=== PATIENT | female | born 1985 | race African-American/Black ===

== ENCOUNTER 2016-08-02 12:26 | Emergency (ER) | payer OTHER ==
[~2016-08-02] VITALS: Ht 154.9 cm; Wt 89.7 kg
[2016-08-02 13:30] LABS: MCH 23.1 PG (29.0-34.0); MCHC 31.2 G/DL (30.0-36.0); MCV 74.1 FL (83-99); MEAN PLAT.VOLUME 9.4 uM^3 (9.5-12.4); PLATELET COUNT 269 K/uL (156-360); RBC DIS.WIDTH-CV 15.8 % (11.8-14.6); RBC DIS.WIDTH-SD 41.7 % (39-53); RED BLOOD COUNT 4.59 M/uL (3.80-5.20); WHITE BLOOD COUNT 8.2 K/uL (4.1-10.2)
[2016-08-02 14:32] LABS: COLOR RED ((YELLOW)); NITRITE NEGATIVE
[2016-08-02 14:33] LABS: ADD MIUA? YES; BILIRUBIN NEGATIVE; BLOOD LARGE; GLUCOSE (STRIP) NEGATIVE; KETONES TRACE; PROTEIN (STRIP) 100; UROBILINOGEN 0.2 MG/DL (0.2-1.0)
[2016-08-02 14:36] LABS: RED BLOOD CELLS TNTC /HPF (0-5)
[2016-08-02 16:58] VITALS: BP 98/54
== END 2016-08-02 16:58 | disposition home or self-care (01) ==
LOC: EME 12:26
PROVIDERS: Physician Assistant
DX: O20.0 Threatened abortion (principal); R31.9 Hematuria, unspecified; M54.5 Low back pain; Z3A.01 Less than 8 weeks gestation of pregnancy
CPT/HCPCS: 76801; 81003; 84702; 85027; 99281; 99284

== ENCOUNTER 2016-10-04 09:15 | Day surgery (SDC) | payer OTHER ==
[~2016-10-04] VITALS: Ht 154.9 cm; Wt 90.3 kg
[~2016-10-04 09:15] MED LIST: PRENATAL TABLE1 EAC3 PO
[2016-10-04 09:43] VITALS: BP 111/55
[2016-10-04 14:14] VITALS: BP 103/66
[2016-10-04 15:10] VITALS: BP 125/83
== END 2016-10-04 15:10 | disposition home or self-care (01) ==
LOC: SDC 09:15
PROC: 0UB98ZZ Excision of Uterus, Via Natural or Artificial Opening Endoscopic (ICD-10-PCS; principal; 2016-10-04)
DX: D25.0 Submucous leiomyoma of uterus (principal); N92.0 Excessive and frequent menstruation with regular cycle; N94.6 Dysmenorrhea, unspecified
CPT/HCPCS: 88305; 94640; J0131; J1100; J1885; J2250; J2405; J2765; J3010

== ENCOUNTER 2018-01-03 13:23 | Emergency (ER) | payer OTHER ==
[~2018-01-03] VITALS: Ht 154.9 cm; Wt 94.7 kg
[2018-01-03 14:17] LABS: HEMATOCRIT 37.3 % (36.0-46.0); HEMOGLOBIN 12.1 G/DL (11.9-15.5); MCH 24.8 PG (29.0-34.0); MCHC 32.4 G/DL (30.0-36.0); MCV 76.4 FL (83-99); PLATELET COUNT 225 K/uL (156-360); RBC DIS.WIDTH-CV 18.1 % (11.8-14.6); RBC DIS.WIDTH-SD 49.7 % (39-53); RED BLOOD COUNT 4.88 M/uL (3.80-5.20); WHITE BLOOD COUNT 9.5 K/uL (4.1-10.2)
[2018-01-03 14:27] LABS: ALBUMIN 3.9 g/dL (3.2-4.8); CHLORIDE 103 mEq/L (99-109); POTASSIUM 3.7 mEq/L (3.7-5.4); SODIUM 134 mEq/L (136-147)
[2018-01-03 14:30] LABS: GLUCOSE 80 mg/dL (70-99); TOTAL PROTEIN 7.7 g/dL (6.4-8.3)
[2018-01-03 14:32] LABS: TOTAL BILIRUBIN 0.5 mg/dL (0.0-1.0)
[2018-01-03 14:33] LABS: ALKALINE PHOSPHATASE 69 IU/L (3-129); CREATININE 0.8 mg/dL (0.6-1.3); GFR ESTIMATE (CALCULATED) > 59 mL/min/
[2018-01-03 14:34] LABS: UREA NITROGEN (BUN) 5 mg/dL (9-23)
[2018-01-03 14:35] LABS: AST (GOT) 38 IU/L (2-34)
[2018-01-03 14:36] LABS: ALT (GPT) 54 IU/L (3-49)
[2018-01-03 14:55] LABS: APPEARANCE SL.HAZY ((CLEAR)); BILIRUBIN NEGATIVE; BLOOD NEGATIVE; COLOR YELLOW ((YELLOW)); GLUCOSE (STRIP) NEGATIVE; KETONES 5; LEUKOCYTES TRACE; NITRITE NEGATIVE; PROTEIN (STRIP) NEGATIVE; SPECIFIC GRAVITY 1.013 (1.000-1.030); UROBILINOGEN 0.2 MG/DL (0.2-1.0)
[2018-01-03 15:07] LABS: BACTERIA RARE /HPF; EPITHELIAL CELLS 2+ /HPF; MUCUS TRACE /LPF; RED BLOOD CELLS 0-5 /HPF (0-5); UCUL ADDED? NO; WHITE BLOOD CELLS 0-5 /HPF (0-5)
[2018-01-03 15:23] LABS: QUANTITATIVE HCG 37912.2 MIU/ML
[2018-01-03 17:00] VITALS: BP 105/65
== END 2018-01-03 17:00 | disposition home or self-care (01) ==
LOC: EME 13:23
DX: O20.0 Threatened abortion (principal); O34.12 Maternal care for benign tumor of corpus uteri, second trimester; D25.9 Leiomyoma of uterus, unspecified; Z3A.18 18 weeks gestation of pregnancy
CPT/HCPCS: 76801; 80053; 81003; 84702; 85027; 99281; 99285

== ENCOUNTER 2018-01-04 22:10 | Emergency (ER) | payer OTHER ==
[~2018-01-04] VITALS: Ht 154.9 cm; Wt 94.5 kg
[2018-01-04 23:24] LABS: HEMATOCRIT 35.1 % (36.0-46.0); HEMOGLOBIN 11.5 G/DL (11.9-15.5); MCH 24.9 PG (29.0-34.0); MCHC 32.8 G/DL (30.0-36.0); MCV 76.1 FL (83-99); PLATELET COUNT 224 K/uL (156-360); RBC DIS.WIDTH-SD 49.4 % (39-53); RED BLOOD COUNT 4.61 M/uL (3.80-5.20); WHITE BLOOD COUNT 9.6 K/uL (4.1-10.2)
[2018-01-04 23:35] LABS: CHLORIDE 102 mEq/L (99-109); POTASSIUM 3.4 mEq/L (3.7-5.4); SODIUM 133 mEq/L (136-147)
[2018-01-04 23:40] LABS: CREATININE 0.8 mg/dL (0.6-1.3); GFR ESTIMATE (CALCULATED) > 59 mL/min/
[2018-01-04 23:41] LABS: UREA NITROGEN (BUN) 7 mg/dL (9-23)
[2018-01-05 00:01] LABS: GLUCOSE 181 mg/dL (70-99)
[2018-01-05] MEDS ORDERED: PERCOCET 5/31 TABLET PO (00:34)
[2018-01-05 00:40] VITALS: BP 98/75
== END 2018-01-05 01:16 | disposition home or self-care (01) ==
LOC: EME 22:10
PROVIDERS: Physician Assistant
DX: O03.9 Complete or unspecified spontaneous abortion without complication (principal)
CPT/HCPCS: 76801; 80048; 84702; 85027; 88300; 99281; 99284